=== PATIENT | male | born 1995 | race Caucasian/White ===

== ENCOUNTER 2022-02-06 11:31 | Inpatient (IN) | payer SELFPAY ==
[~2022-02-06] VITALS: Ht 185.4 cm; Wt 108.0 kg
[2022-02-06] MEDS ORDERED: INSULIN (11:40)
[2022-02-06] MEDS ORDERED: ONDANSETRON HCL 4MG/2ML INJ IV STA (11:44)
[2022-02-06] MEDS ORDERED: SODIUM CHLORIDE 0.9% 1,000 ML IV ONE (11:45)
[2022-02-06 12:29] LABS: BASOPHILS % 0.3 % (0.0-2.0); EOSINOPHILS % 0.7 % (0.0-5.0); HEMATOCRIT. 46.9 % (42.0-52.0); HEMOGLOBIN. 15.7 g/dL (14.0-18.0); MEAN CORPUSCULAR VOLUME 89.6 fL (80.0-94.0); MEAN PLATELET VOLUME 10.7 fl (7.4-10.4); PLATELET 306 x1000/uL (130-400); RED BLOOD CELL COUNT 5.23 mill/uL (4.7-6.1); RED CELL DISTRIBUTION WIDTH 13.7 % (11.6-14.6)
[2022-02-06 12:33] LABS: BG BASE EXCESS -23.8 mmol/L (-2.0-2.0); BG CARBOXYHEMOGLOBIN 0.4 % (0.5-1.5); BG DEOXYHEMOGLOBIN 1.9 % (0.0-5.0); BG FRACTION INSPIRED OXYGEN 21; BG HCO3 ACT 3.4 mmol/L (22.0-26.0); BG METHEMOGLOBIN 0.5 % (0.0-1.5); BG OXYGEN SATURATION 98.1 % (92.0-98.5); BG OXYHEMOGLOBIN 97.2 % (94.0-97.0); BG PCO2 11.4 mmHg (35.0-45.0); BG PH 7.097 (7.350-7.450); BG PO2 112.1 mmHg (75.0-100.0); BG SAMPLE SITE RIGHT RADIAL; BG VENT MODE ROOM AIR
[2022-02-06 12:38] LABS: CHLORIDE 98 mEq/L (98-107)
[2022-02-06 12:47] LABS: BETA HYDROXYBUTYRATE 8.8 mMol/L (0.0-0.3)
[2022-02-06] MEDS ORDERED: INSULIN REGULAR (DRIP) 100 UNITS in SODIUM CHLORIDE 0.9% 100 ML IV ONE (13:00)
[2022-02-06] MEDS ORDERED: INSULIN REGULAR 100U/100ML PMX 100 ML IV ONE (13:00)
[2022-02-06 15:40] LABS: CHLORIDE 101 mEq/L (98-107)
[2022-02-06 16:59] LABS: CHLORIDE 104 mEq/L (98-107)
[2022-02-06 18:12] LABS: CLARITY URINE CLEAR (CLEAR); COLOR URINE YELLOW (YELLOW); KETONES URINE 4+ (NEGATIVE); LEUKOCYTE ESTERASE URINE NEGATIVE (NEGATIVE); NITRITE URINE NEGATIVE (NEGATIVE); OCCULT BLOOD URINE 1+ (NEGATIVE); PH URINE 5.5 (4.5-8.0); PROTEIN URINE 2+ (NEGATIVE); SPECIFIC GRAVITY URINE 1.027 (1.005-1.030); UROBILINOGEN URINE 0.2 E.U./dL (0.2-1.0)
[2022-02-06] MEDS ORDERED: INSULIN REGULAR (DRIP) 100 UNITS in SODIUM CHLORIDE 0.9% 100 ML IV SCH (18:15)
[2022-02-06] MEDS ORDERED: HYDROCODONE/ACETAMINOPHEN 5/325MG TABLET PO PRN (18:15)
[2022-02-06] MEDS ORDERED: MAGNESIUM/ALUMINUM HYDROXIDE/SIMETHICONE 30ML UDC PO PRN (18:15)
[2022-02-06] MEDS ORDERED: ACETAMINOPHEN 325MG TABLET PO PRN (18:15)
[2022-02-06] MEDS ORDERED: CLONIDINE 0.1MG TABLET PO PRN (18:15)
[2022-02-06] MEDS ORDERED: ONDANSETRON HCL 4MG/2ML INJ IV PRN (18:15)
[2022-02-06] MEDS ORDERED: DEXT 5%/0.45% NACL 1000ML 1,000 ML IV SCH (18:30)
[2022-02-06 20:46] LABS: CHLORIDE 106 mEq/L (98-107)
[2022-02-06] MEDS: AMLODIPINE 10MG TABLET PO SCH (21:08)
[2022-02-06] MEDS ORDERED: INSULIN REGULAR 100U/100ML PMX 100 ML IV SCH (21:45)
[2022-02-06] MEDS ORDERED: DEXTROSE 50% WATER 50ML SYRINGE IV PRN (21:45)
[2022-02-06] MEDS: BLOOD SUGAR DIAGNOSTIC STRIP TEST SCH ×2 (22:52→22:53)
[2022-02-07] MEDS: BLOOD SUGAR DIAGNOSTIC STRIP TEST SCH ×9 (01:00→22:50)
[2022-02-07 06:27] LABS: BASOPHILS % 0.7 % (0.0-2.0); EOSINOPHILS % 3.6 % (0.0-5.0); HEMATOCRIT. 43.2 % (42.0-52.0); HEMOGLOBIN. 14.8 g/dL (14.0-18.0); LYMPHOCYTES % 24.6 % (20.0-50.0); MEAN CORPUSCULAR HEMOGLOBIN 30.2 pg (28.0-32.0); MEAN CORPUSCULAR VOLUME 88.1 fL (80.0-94.0); MEAN PLATELET VOLUME 10.4 fl (7.4-10.4); MONOCYTES % 13.8 % (2.0-8.0); NEUTROPHILS % 57.3 % (40.0-76.0); PLATELET 239 x1000/uL (130-400); RED CELL DISTRIBUTION WIDTH 13.8 % (11.6-14.6)
[2022-02-07 06:42] LABS: CHLORIDE 109 mEq/L (98-107)
[2022-02-07 06:50] LABS: BETA HYDROXYBUTYRATE 3.5 mMol/L (0.0-0.3)
[2022-02-07] MEDS: DEXT 5%/0.45% NACL KCL 20MEQ/L 1,000 ML IV SCH ×2 (09:11→22:44)
[2022-02-07 09:38] LABS: BG BASE EXCESS -14.1 mmol/L (-2.0-2.0); BG CARBOXYHEMOGLOBIN 0.2 % (0.5-1.5); BG FRACTION INSPIRED OXYGEN 21; BG HCO3 ACT 11.5 mmol/L (22.0-26.0); BG OXYHEMOGLOBIN 97.8 % (94.0-97.0); BG PCO2 27.1 mmHg (35.0-45.0); BG PH 7.244 (7.350-7.450); BG PO2 103.7 mmHg (75.0-100.0); BG SAMPLE SITE RIGHT RADIAL; BG TOTAL HEMOGLOBIN 15.1 g/dL (12.0-18.0); BG VENT MODE ROOM AIR
[2022-02-07] MEDS: AMLODIPINE 10MG TABLET PO SCH (10:33)
[2022-02-07 15:46] LABS: CHLORIDE 108 mEq/L (98-107)
[2022-02-07 19:00] VITALS: BP 119/82
[2022-02-07 19:01] VITALS: BP 119/82
[2022-02-07 19:30] VITALS: BP 119/82
[2022-02-07 22:00] VITALS: BP 117/61
[2022-02-07 23:00] VITALS: BP 129/85
[2022-02-08] VITALS (14 sets, daily range): BP systolic 107–139; BP diastolic 57–99
[2022-02-08 00:13] LABS: CHLORIDE 111 mEq/L (98-107)
[2022-02-08] MEDS: BLOOD SUGAR DIAGNOSTIC STRIP TEST SCH ×10 (01:37→12:38)
[2022-02-08 05:57] LABS: CHLORIDE 111 mEq/L (98-107)
[2022-02-08] MEDS ORDERED: DEXTROSE 50% WATER 50ML SYRINGE IV PRN (07:45)
[2022-02-08] MEDS ORDERED: POTASSIUM CHLORIDE 20MEQ TABLET SR PO NR ×2 (07:45→12:30)
[2022-02-08] MEDS: AMLODIPINE 10MG TABLET PO SCH (08:08)
[2022-02-08] MEDS: INSULIN LISPRO 100 UNITS/ML SUBCUT SCH ×2 (08:14→13:31)
[2022-02-08] MEDS ORDERED: INSULIN GLARGINE UD 100 UNITS/ML SYR SUBCUT SCH (09:00)
[2022-02-08] MEDS ORDERED: SODIUM BICARBONATE 8.4% 1 MEQ/ML 50ML SYR IV NR (14:00)
== END 2022-02-08 16:36 | disposition home or self-care (01) | DRG 420 ==
LOC: ER 11:31 → MICUSO 14:25 → CVICU 02-07 19:14 → 6EST 02-08 11:37
PROVIDERS: ADMIT Hospitalist; ATTEND Hospitalist
DX: E10.10 Type 1 diabetes mellitus with ketoacidosis without coma (principal); F17.200 Nicotine dependence, unspecified, uncomplicated; Z20.822 Contact with and (suspected) exposure to COVID-19; Z79.4 Long term (current) use of insulin
CPT/HCPCS: 36415; 36600; 71045; 80048; 80053; 81003; 82010; 82375; 82805; 82962; 83036; 83735; 84100; 84484; 85025; 87426; 93005; 99291; J1815; J2405; J3490; J7030